=== PATIENT | male | born 1990 | race Caucasian/White ===

== ENCOUNTER 2019-07-23 04:53 | Inpatient (IN) ==
[2019-07-23 05:33] LABS: Basophils # (auto) 0.03 K/uL (0-0.2); Basophils % (auto) 0.5 %; Eosinophils # (auto) 0.03 K/uL (0-0.5); Eosinophils % (auto) 0.5 %; Hemoglobin 15.6 g/dL (14.0-18.0); Immature Granulocytes # (auto) 0.01 K/uL (0.00-0.02); Immature Granulocytes % (auto) 0.2 %; Lymphocytes # (auto) 1.85 K/uL (1.2-3.4); Lymphocytes % (auto) 28.5 %; Mean Corpuscular Hemoglobin 32.4 pg (25-34); Mean Corpuscular Hgb Conc 35.5 g/dL (32-36); Mean Corpuscular Volume 91.5 fL (80-100); Mean Platelet Volume 10.5 fL (7.4-10.4); Monocytes # (auto) 0.43 K/uL (0.11-0.59); Monocytes % (auto) 6.6 %; Neutrophils # (auto) 4.14 K/uL (1.4-6.5); Neutrophils % (auto) 63.7 %; Platelet Count 183 K/uL (130-400); RDW Coefficient of Variation 12.8 % (11.5-14.5); RDW Standard Deviation 42.7 fL (36.4-46.3); Red Blood Count 4.81 M/uL (4.7-6.1); White Blood Count 6.49 K/uL (4.8-10.8)
[2019-07-23 05:54] LABS: Albumin Level 4.1 gm/dl (3.4-5.0); BUN Creatinine Ratio 13.1 (10-20); Creatinine Clr Calc Pharmacy 88.8 ml/min; Est GFR (African American) 90.9; Est GFR (Non-African American) 78.4; Potassium 3.6 mmol/L (3.5-5.1)
[2019-07-23 05:57] LABS: Albumin Globulin Ratio 1.3 (0.9-2); Bilirubin,Total 0.3 mg/dl (0.2-1); Globulin 3.2 gm/dl (2.5-4.0); Total Protein 7.3 gm/dl (6.4-8.2)
--- NOTE | 2019-07-23 06:28 | XRay Report ---
XR chest 1V portable CLINICAL HISTORY: 29 years-old Male presenting with hypoxia. TECHNIQUE: Portable upright AP view of the chest was obtained. COMPARISON: None. FINDINGS: Cardiomediastinal silhouette normal. No focal opacity. No large effusion or pneumothorax. Osseous str uctures normal. Upper abdomen normal. IMPRESSION: 1. No acute cardiopulmonary disease. ACT 112: Negative or not required by law. Electronically signed by: Robbie Hansen M.D. 07/23/2019 6:27 AM
--- NOTE | 2019-07-23 06:54 | History & Physical Report ---
Date of Service July 23, 2019 Assessment & Plan (1) Hypoxia: Acute respiratory failure with hypoxia/heroin overdose/alcohol overdose- Admit to monitored bed. Continue nasal cannula oxygen, titrate to keep pulse ox 94 to 95%. ABG pending. Chest x-ray showing no acute findings. Duonebs every 4 hours while awake and every 2 hours when necessary. Hypoxia is likely secondary to respiratory depression, as there does not appear to be any active infection at this time. If aoxygenation does not improve appropriately quickly, will order CT of chest Present on Admission?: Yes (2) Alcohol overdose: Alcohol level was 173.0 upon admission. Repeat tomorrow. Placed on normal saline + KCl 20 mEq at 100 mils per hour. Zofran 4 mg IV every 6 hours as needed. Acetaminophen 650 mg p.o. every 6 hours PRN mild pain or temperature. Present on Admission?: Yes (3) Heroin overdose: Urine drug screen pending. Respiratory rate of 16, does not need Narcan, but should have available. Present on Admission?: Yes History of Present Illness Chief Complaint: The patient is brought to the emergency department by EMS due to concerns regarding an accidental overdose. Primary Care Provider: NO PCP The patient is a 29-year-old male with unknown past medical history, who presents emergency department with a combination heroin and alcohol overdose and found to be hypoxic with pulse ox 81% on room air in the ED. The patient is not able to contribute significantly to his HPI or review of systems due to altered mental state Allergies Allergy/AdvReac Type Severity Reaction Status Date / Time No Known Allergies Allergy Unverified 07/23/19 05:22 Home Medications Home Medications Medication Instructions Recorded Confirmed Type No Known Home Medications 07/23/19 07/23/19 History Past Med/Surg History Medical History No pertinent past medical history Surgical History No pertinent past surgical history Social History Feels Safe at Home: Yes Smoking Status: Never smoker Hx Substance Use: Yes substance use type: heroin Review of Systems Review of Systems: Unobtainable due to reduced consciousness Physical Exam Physical Exam: The patient is awake, very lethargic, normocephalic and atraumatic, lying in bed and in no acute distress. HEENT--PERRL, EOMI, mucous membranes and oropharynx dry. Neck--supple. No JVD. No bruits. Thyroid normal, trachea midline, no adenopathy. Heart--normal S1 and S2. No murmurs, rubs or gallops. Lungs--decreased breath sounds throughout. No respiratory distress, no accessory muscle use, on nasal cannula oxygen Abdomen--normal bowel sounds and soft. Nontender. Nondistended, no hernias or masses, no organomegaly. Extremities--no cyanosis or clubbing. No edema. There are good distal pulses b/l. Dermatologic--normal skin turgor, normal color, no abnormal lymph nodes, no rash. Neurologic--cranial nerves II through XII grossly intact. Rheumatologic--normal range of motion. Psychiatric--very lethargic Results & Data Vital Signs (Past 12 Hours) Vital Signs Temp Pulse Pulse Resp BP BP Pulse Ox 07/23/19 06:25 81 16 129/63 100 07/23/19 05:31 81 L 07/23/19 05:03 97.9 F 116 H 18 162/107 H 98 Laboratory Results Laboratory Results WBC 6.49 K/uL (4.8-10.8) 07/23/19 05:20 RBC 4.81 M/uL (4.7-6.1) 07/23/19 05:20 Hgb 15.6 g/dL (14.0-18.0) 07/23/19 05:20 Hct 44.0 % (42-52) 07/23/19 05:20 MCV 91.5 fL (80-100) 07/23/19 05:20 MCH 32.4 pg (25-34) 07/23/19 05:20 MCHC 35.5 g/dL (32-36) 07/23/19 05:20 RDW Std Deviation 42.7 fL (36.4-46.3) 07/23/19 05:20 RDW Coeff of Sal 12.8 % (11.5-14.5) 07/23/19 05:20 Plt Count 183 K/uL (130-400) 07/23/19 05:20 MPV 10.5 fL (7.4-10.4) H 07/23/19 05:20 Immature Gran % (Auto) 0.2 % 07/23/19 05:20 Neut % (Auto) 63.7 % 07/23/19 05:20 Lymph % (Auto) 28.5 % 07/23/19 05:20 [place] % (Auto) 6.6 % 07/23/19 05:20 Eos % (Auto) 0.5 % 07/23/19 05:20 Baso % (Auto) 0.5 % 07/23/19 05:20 Immature Gran # (Auto) 0.01 K/uL (0.00-0.02) 07/23/19 05:20 Neut # (Auto) 4.14 K/uL (1.4-6.5) 07/23/19 05:20 Lymph # (Auto) 1.85 K/uL (1.2-3.4) 07/23/19 05:20 [place] # (Auto) 0.43 K/uL (0.11-0.59) 07/23/19 05:20 Eos # (Auto) 0.03 K/uL (0-0.5) 07/23/19 05:20 Baso # (Auto) 0.03 K/uL (0-0.2) 07/23/19 05:20 ABG pH Cancelled 07/23/19 06:28 ABG pCO2 Cancelled 07/23/19 06:28 ABG pO2 Cancelled 07/23/19 06:28 ABG HCO3 Cancelled 07/23/19 06:28 ABG O2 Saturation Cancelled 07/23/19 06:28 ABG Base Excess Cancelled 07/23/19 06:28 Filippo Test Cancelled 07/23/19 06:28 Barometric Pressure Cancelled 07/23/19 06:28 Oxygen Given Cancelled 07/23/19 06:28 Sodium 139 mmol/L (136-145) 07/23/19 05:20 Potassium 3.6 mmol/L (3.5-5.1) 07/23/19 05:20 Chloride 106 mmol/L (98-107) 07/23/19 05:20 Carbon Dioxide 25 mmol/L (21-32) 07/23/19 05:20 Anion Gap 8.0 (3-11) 07/23/19 05:20 BUN 16 mg/dl (7-18) 07/23/19 05:20 Creatinine 1.25 mg/dl (0.6-1.4) 07/23/19 05:20 Est Cr Clr Drug Dosing 88.8 ml/min 07/23/19 05:20 Est GFR ( Amer) 90.9 07/23/19 05:20 Est GFR (Non-Af Amer) 78.4 07/23/19 05:20 BUN/Creatinine Ratio 13.1 (10-20) 07/23/19 05:20 Glucose 123 mg/dl (70-99) H 07/23/19 05:20 Calcium 8.0 mg/dl (8.5-10.1) L 07/23/19 05:20 Total Bilirubin 0.3 mg/dl (0.2-1) 07/23/19 05:20 AST 27 U/L (15-37) 07/23/19 05:20 ALT 39 U/L (12-78) 07/23/19 05:20 Alkaline Phosphatase 58 U/L (45-117) 07/23/19 05:20 Total Protein 7.3 gm/dl (6.4-8.2) 07/23/19 05:20 Albumin 4.1 gm/dl (3.4-5.0) 07/23/19 05:20 Globulin 3.2 gm/dl (2.5-4.0) 07/23/19 05:20 Albumin/Globulin Ratio 1.3 (0.9-2) 07/23/19 05:20 Ethyl Alcohol mg/dL 173.0 mg/dl (0-3) H 07/23/19 05:20 Diagnostic Findings [facility], [place] [phone] XRay Report Patient: DEMARCO TARANGOAdmit Date: 07/23/19 MR#: [id number]: [address] [facility] [address] Acct ID:[id number]: Date: 1990[facility] Zip: [place] [id number] Age: 29Location: ED Sex: M Room/Bed: Att Phy:Diagnosis: OVERDOSE Joaquina Phy: PCP,NOService Date: 07/23/19 Fam Phy:Interpreting Phy: Robbie Hansen MD Admit Phy: Ordering Phy: Fredrick Roland M.D. cc: ~ XR chest 1V portable CLINICAL HISTORY: 29 years-old Male presenting with hypoxia. TECHNIQUE: Portable upright AP view of the chest was obtained. COMPARISON: None. FINDINGS: Cardiomediastinal silhouette normal. No focal opacity. No large effusion or pneumothorax. Osseous structures normal. Upper abdomen normal. IMPRESSION: 1. No acute cardiopulmonary disease. ACT 112: Negative or not required by law. Electronically signed by: Robbie Hansen M.D. 07/23/2019 6:27 AM Dictated: 07/23/19625 Transcribed: 07/23/19625 Code Status & VTE Plan Code Status Full code VTE Prophylaxis Plan VTE Prophylaxis will be ordered: Yes PG Care Time/CCT Total # of Minutes Spent Total Time Spent with Patient: Total time spent is greater than 50% in coordination of care (as documented) at patient's floor/unit and/or counseling patient: Coding Level of Care Code 92666 Initial Inpt Care Lvl 3 Diagnoses Hypoxia R09.02 Alcohol overdose T51.91XA Encounter type: initial encounter Injury intent: accidental or unintentional Heroin overdose T40.1X1A Encounter type: initial encounter Injury intent: accidental or unintentional (1) Alcohol overdose Encounter type: initial encounter Injury intent: accidental or unintentional Qualified Code(s): T51.91XA - Toxic effect of unspecified alcohol, accidental (unintentional), initial encounter (2) Heroin overdose Encounter type: initial encounter Injury intent: accidental or unintentional Qualified Code(s): T40.1X1A - Poisoning by heroin, accidental (unintentional), initial encounter
[2019-07-23 07:13] LABS: HCO3 ABG 25 mmol/L (19-24); Oxygen Saturation ABG 94.6 % (90-95); PCO2 ABG 44 mmHg (35-46); PO2 ABG 73 mmHg (80-95); pH ABG 7.36 (7.35-7.45)
--- NOTE | 2019-07-23 07:18 | Emergency Department Note ---
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 EMS reports that the patient was at a poker green party with friends in [place] this evening where he drank 7-10 beers, 2 glasses of wine, and possibly snorted heroin. They state that he had gasping respirations when they arrived and that he was unconscious and cyanotic for 8-10 minutes. EMS administered 0.8 mg of Narcan and the patient vomited when he arrived to the ED. The patient states that he lives alone and denies other drug use tonight. Of note, he is allergic to penicillin. He denies chest pain, shortness of breath, and leg cramping/swelling. Home Medications Home Medications Medication Instructions Recorded Confirmed Type No Known Home Medications 07/23/19 07/23/19 History Allergies Allergy/AdvReac Type Severity Reaction Status Date / Time No Known Allergies Allergy Unverified 07/23/19 05:22 Past Med/Surg History Medical History No pertinent past medical history Surgical History No pertinent past surgical history Social History Feels Safe at Home: Yes Smoking Status: Never smoker Hx Substance Use: Yes substance use type: heroin Review of Systems See HPI for pertinent positives & negatives. and A total of 10 systems reviewed and were otherwise negative Physical Exam Vital Signs Vital Signs - 24 hr 07/23/19 05:03 07/23/19 05:31 07/23/19 06:25 Temperature 36.6 C Temperature Source Oral Pulse Rate 116 H Pulse Rate [Apical] 81 Respiratory Rate 18 16 Respiratory Effort / Characteristics Non-Labored Spontaneous Non-Labored Spontaneous Respiratory Depth Normal Normal Blood Pressure 162/107 H Blood Pressure [Right Arm] 129/63 Blood Pressure Mean 125 Blood Pressure Mean [Right Arm] 85 Pulse Oximetry 98 81 L 100 Oxygen Delivery Method Room Air Room Air Nasal Cannula Oxygen Flow Rate 3 Sepsis Recent Fever Within 48 Hours No Sepsis Action Taken by Nursing No Action Required Oxygen Flow Rate - Titration 4 Pulse Oximetry Post Tiitration 99 HEENT: Head - normocephalic and atraumatic Pupils are equal, round, and reactive to light. Extraocular eye muscles are intact, and sclera are anicteric. Nose - moist nasal mucosa without discharge. Mouth - moist buccal mucosa. Oropharynx is nonerythematous and there is no tonsillar exudate or edema noted. Neck: Supple; no cervical lymphadenopathy Heart: Regular rate and rhythm. There is a normal S1 and S2 with no murmurs, clicks, or gallops appreciated. Lungs: Clear to auscultation bilaterally with no wheezes, rales, or rhonchi. Abdomen: Soft, completely nontender, nondistended, with good bowel sounds. There are no palpable pulsatile masses or hepatosplenomegaly. There is no guarding, rigidity, or rebound noted. Extremities: No evidence of cyanosis, clubbing, or edema. There are easily palpable peripheral pulses. Skin: warm and dry with good turgor and no rashes. Course Course 0500: Past medical records reviewed. The patient was evaluated in room B10. A complete history and physical exam was performed. An order was placed for continuous cardiac monitoring. The patient remained in a normal sinus rhythm at 81. 0503: A twelve-lead EKG was obtained. 0530: I checked on the patient and updated him. 0550: I re-checked the patient and he is resting. 0600: I re-checked the patient and his O2 sat dropped to 81% and he became unresponsive in the room. Nurses put him on oxygen and he was difficult to arouse. He is now on 4L of O2 and cannot carry on a conversation. I tried to reviewed the patient's laboratory results with him but he could not stay awake to do so. 0606: [facility] the patient. The patient verbally expressed understanding and agreement of the treatment plan. The patient will be evaluated for further treatment. Critical Care Time Critical Care Time: Yes Total Critical Care Time: 50 I have personally spent 50 minutes of critical care time in the direct management of this patient. This includes bedside care, interpretation of diagnostic studies, and testing, discussion with consultants, patient, and family members, and other required patient management activities. This 50 minutes is in excess of all separately billable procedures. Medical Decision Making Differential Diagnosis Differential diagnosis includes but is not limited to drug overdose, alcohol intoxication, amongst others considered. Medical Records Attestation: I reviewed the patient's medical records. Home Medications Current Medication List: was personally reviewed by me Laboratory Data Attestation: I reviewed the patient's lab results. Result diagrams: 07/23/19 05:20 07/23/19 05:20 Lab Results 07/23/19 07/23/19 07/23/19 Range/Units 05:20 05:20 05:20 WBC 6.49 (4.8-10.8) K/uL RBC 4.81 (4.7-6.1) M/uL Hgb 15.6 (14.0-18.0) g/dL Hct 44.0 (42-52) % MCV 91.5 (80-100) fL MCH 32.4 (25-34) pg MCHC 35.5 (32-36) g/dL RDW Std Deviation 42.7 (36.4-46.3) fL RDW Coeff of Sal 12.8 (11.5-14.5) % Plt Count 183 (130-400) K/uL MPV 10.5 H (7.4-10.4) fL Immature Gran % (Auto) 0.2 % Neut % (Auto) 63.7 % Lymph % (Auto) 28.5 % Jerome % (Auto) 6.6 % Eos % (Auto) 0.5 % Baso % (Auto) 0.5 % Immature Gran # (Auto) 0.01 (0.00-0.02) K/uL Neut # (Auto) 4.14 (1.4-6.5) K/uL Lymph # (Auto) 1.85 (1.2-3.4) K/uL Jerome # (Auto) 0.43 (0.11-0.59) K/uL Eos # (Auto) 0.03 (0-0.5) K/uL Baso # (Auto) 0.03 (0-0.2) K/uL ABG pH ABG pCO2 ABG pO2 ABG HCO3 ABG O2 Saturation ABG Base Excess Filippo Test Barometric Pressure Oxygen Given Sodium 139 (136-145) mmol/L Potassium 3.6 (3.5-5.1) mmol/L Chloride 106 (98-107) mmol/L Carbon Dioxide 25 (21-32) mmol/L Anion Gap 8.0 (3-11) BUN 16 (7-18) mg/dl Creatinine 1.25 (0.6-1.4) mg/dl Est Cr Clr Drug Dosing 88.8 ml/min Est GFR ( Amer) 90.9 Est GFR (Non-Af Amer) 78.4 BUN/Creatinine Ratio 13.1 (10-20) Glucose 123 H (70-99) mg/dl Calcium 8.0 L (8.5-10.1) mg/dl Total Bilirubin 0.3 (0.2-1) mg/dl AST 27 (15-37) U/L ALT 39 (12-78) U/L Alkaline Phosphatase 58 (45-117) U/L Total Protein 7.3 (6.4-8.2) gm/dl Albumin 4.1 (3.4-5.0) gm/dl Globulin 3.2 (2.5-4.0) gm/dl Albumin/Globulin Ratio 1.3 (0.9-2) Ethyl Alcohol mg/dL 173.0 H (0-3) mg/dl 07/23/19 Range/Units 06:28 WBC (4.8-10.8) K/uL RBC (4.7-6.1) M/uL Hgb (14.0-18.0) g/dL Hct (42-52) % MCV (80-100) fL MCH (25-34) pg MCHC (32-36) g/dL RDW Std Deviation (36.4-46.3) fL RDW Coeff of Sal (11.5-14.5) % Plt Count (130-400) K/uL MPV (7.4-10.4) fL Immature Gran % (Auto) % Neut % (Auto) % Lymph % (Auto) % Jerome % (Auto) % Eos % (Auto) % Baso % (Auto) % Immature Gran # (Auto) (0.00-0.02) K/uL Neut # (Auto) (1.4-6.5) K/uL Lymph # (Auto) (1.2-3.4) K/uL Jerome # (Auto) (0.11-0.59) K/uL Eos # (Auto) (0-0.5) K/uL Baso # (Auto) (0-0.2) K/uL ABG pH Cancelled ABG pCO2 Cancelled ABG pO2 Cancelled ABG HCO3 Cancelled ABG O2 Saturation Cancelled ABG Base Excess Cancelled Filippo Test Cancelled Barometric Pressure Cancelled Oxygen Given Cancelled Sodium (136-145) mmol/L Potassium (3.5-5.1) mmol/L Chloride (98-107) mmol/L Carbon Dioxide (21-32) mmol/L Anion Gap (3-11) BUN (7-18) mg/dl Creatinine (0.6-1.4) mg/dl Est Cr Clr Drug Dosing ml/min Est GFR ( Amer) Est GFR (Non-Af Amer) BUN/Creatinine Ratio (10-20) Glucose (70-99) mg/dl Calcium (8.5-10.1) mg/dl Total Bilirubin (0.2-1) mg/dl AST (15-37) U/L ALT (12-78) U/L Alkaline Phosphatase (45-117) U/L Total Protein (6.4-8.2) gm/dl Albumin (3.4-5.0) gm/dl Globulin (2.5-4.0) gm/dl Albumin/Globulin Ratio (0.9-2) Ethyl Alcohol mg/dL (0-3) mg/dl ECG Data Attestation: I personally reviewed and interpreted this ECG as follows: Indication: + other (overdose) Rate (beats per minute): 78 Rhythm: + normal sinus ECG Findings: + Other (no ischemia); no PACs and no PVCs Blood Pressure Blood Pressure Findings: Elevated blood pressure Blood Pressure Disposition: further management by hospitalist HERNANDEZ Her This is a 29-year-old male patient brought to the emergency department after consuming alcohol and snorting heroin. The patient had to be resuscitated on scene with IV Narcan. Initially, the patient did not want to stay here in the hospital but then the Narcan wore off and he became more somnolent. His oxygen saturation had to be supported with supplemental O2. I did not feel comfortable discharging this patient and felt he would require close observation and supplemental oxygen until the heroin and alcohol cleared from his system. The patient will be evaluated by the [facility] Hospitalist. Impression & Plan Hypoxia, Heroin overdose, Alcohol overdose Discharge Plan Visit Data Chief Complaint: Overdose (Accidental) Stated Complaint: OVERDOSE ED Provider: Betty Orozco Discharge Problem: Hypoxia, Heroin overdose, Alcohol overdose Patient Disposition: Being Evaluated by Hospitalist Forms Stand Alone Forms: My [facility] Prescriptions Prescriptions: No Action No Known Home Medications RF: 0 Referrals Referrals: PCP,NO [Primary Care Provider] - Discharge Problem: Heroin overdose Qualifiers: Encounter type: initial encounter Injury intent: accidental or unintentional Qualified Code(s): T40.1X1A - Poisoning by heroin, accidental (unintentional), initial encounter Alcohol overdose Qualifiers: Encounter type: initial encounter Injury intent: accidental or unintentional Qualified Code(s): T51.91XA - Toxic effect of unspecified alcohol, accidental (unintentional), initial encounter The scribe's documentation has been prepared under my direction and personally reviewed by me in its entirety. I confirm that the note above accurately reflects all work, treatment, procedures, and medical decision making performed by me.
[2019-07-23 07:24] LABS: Allen Test Pos (Pos)
[2019-07-23] MEDS ORDERED: ONDANSETRON INJ 2 MG/ML 2 ML VIAL ONE (08:00)
[2019-07-23] MEDS ORDERED: ALBUT/IPRATROP 3MG/0.5MG NEB 3 ML VIAL NEB SCH (08:01)
[2019-07-23] MEDS ORDERED: ENOXAPARIN INJ 40 MG/0.4 ML SYR SQ SCH (08:01)
[2019-07-23] MEDS ORDERED: ONDANSETRON INJ 2 MG/ML 2 ML VIAL IV PRN (08:01)
[2019-07-23] MEDS ORDERED: ACETAMINOPHEN 325 MG TAB PO PRN (08:01)
[2019-07-23] MEDS ORDERED: ALBUT/IPRATROP 3MG/0.5MG NEB 3 ML VIAL NEB PRN (08:04)
[2019-07-23] MEDS ORDERED: NSS + 20MEQ KCL 20 MEQ/1,000 ML BAG IV SCH (08:30)
--- NOTE | 2019-07-23 10:18 | Electrocardiogram Report ---
Test Reason : Blood Pressure : / mmHG Vent. Rate : 078 BPM Atrial Rate : 078 BPM P-R Int : 168 ms QRS Dur : 104 ms QT Int : 398 ms P-R-T Axes : 037 025 008 degrees QTc Int : 453 ms Normal sinus rhythm Normal ECG No previous ECGs available Confirmed by Buddy Sullivan ([id number]) on 07/23/2019 10:17:29 AM Referred By: REFERRED SELF Confirmed By:Buddy Sullivan
--- NOTE | 2019-07-23 18:15 | Discharge Summary ---
Date of Service July 23, 2019 Admission HPI Per Admitting Provider The patient is a 29-year-old male with unknown past medical history, who presents emergency department with a combination heroin and alcohol overdose and found to be hypoxic with pulse ox 81% on room air in the ED. The patient is not able to contribute significantly to his HPI or review of systems due to altered mental state Principal Diagnosis Heroin overdose Discharge Exam Constitutional WD/WN, vitals as above Eyes EOM intact bilaterally; no conjunctival abnormality ENMT external ear and nose normal, oropharynx normal Neck trachea midline, no thyromegaly normal visual inspection Respiratory normal respiratory effort, lungs clear to auscultation no respiratory distress Cardiovascular RRR, no murmur, no edema Gastrointestinal (Abdomen) Inspection/Auscultation: abdomen normal to inspection; abdomen not distended Musculoskeletal no cyanosis or clubbing, extremities motor strength 5/5 Skin no rashes, warm and dry Neurologic moves all extremities and awake Psychiatric Orientation: alert, oriented to person and cooperative Discharge Data Allergies Allergy/AdvReac Type Severity Reaction Status Date / Time No Known Allergies Allergy Unverified 07/23/19 05:22 Consultations 07/23/19 06:06 ED Decision to Admit Stat 07/23/19 08:01 Consult Case Management - Discharge Planning Routine Hospital Course (1) Heroin overdose: Metabolized and was fine by morning. He was AAOx3 and was easily able to discuss his care. He was very cagey about the events leading up to his admission, saying things like "If there was heroin at my green party - and I don't know that there was - I might have taken some, but I can't say that I did." - Encourage cessation of all drugs. He did not want to stay for case management to offer any rehab resources. (2) Alcohol overdose: Alcohol level was 173.0 upon admission. - Appeared sober by discharge. He agreed to take a taxi and not drive. He had no keys (or shoes) on discharge. - Encourage responsive alcohol consumption. Total Time Total Time Spent Total Time Spent (In Minutes): 35 Discharge Plan Discharge Items Patient Disposition: Home - Self-Care Reason For Visit: HYPOXIA,DRUG OVERDOSE Discharge Diagnosis: Alcohol and drug overdose Activity: Resume your previous activity Non-emergency contact: Primary Care Provider Call non-emergency contact if: your symptoms worsen Follow-up/Referrals: PCP,NO [Primary Care Provider] - Diet: Regular Addtl Attending Provider Instructions: Please limit your alcohol intake and stop other drug use. Pending Studies at Discharge: No Stand-Alone Forms: My [facility], Smoking Cessation Medications and DC Order Prescriptions: No Action No Known Home Medications RF: 0 Discharge Orders: Discharge Order (Routine); Ordered 07/23/19 Ordered By: Keven Amador Admission Data Admit Date/Time: 07/23/19 06:44 Attending Provider: Fredrick Roland Admit Provider: Fredrick Roland Primary Care Provider: PCP,NO Other Providers: Fredrick Roland Other Interventions: Discharge Summary Assessment (RN) Last Done: 07/23/19 08:48 DC Date/Time DO NOT enter until pt leaves facility: 07/23/19 09:09 Coding Level of Care Code D/C Day Management >30 mins Diagnoses Heroin overdose T40.1X1A Encounter type: initial encounter Injury intent: accidental or unintentional Alcohol overdose T51.91XA Encounter type: initial encounter Injury intent: accidental or unintentional
== END 2019-07-23 09:09 | disposition home or self-care (01) | DRG 917 ==
LOC: ED 04:53 → 2S 06:44